=== PATIENT | male | born 1945 | race American Indian/Alaskan Native ===

== ENCOUNTER 2017-04-13 06:15 | Day surgery (SDC) | payer MEDICARE ==
[2017-04-07 11:19] VITALS: BMI 22.7
[2017-04-13] MEDS ORDERED: Propofol 10 mg/ml Inj (20 ML) ONE (07:59)
[2017-04-13] MEDS ORDERED: Lidocaine 1% Inj (20ml) ONE (07:59)
[2017-04-13] MEDS ORDERED: Sodium Chloride 0.9% 1,000 ML IV SCH (09:00)
[2017-04-13 09:04] VITALS: TEMP 97.9
[2017-04-13 09:36] VITALS: BP 169/75; PULSE 53; RESP 19; O2SAT 98
== END 2017-04-13 10:37 | disposition home or self-care (01) ==
LOC: ENDO 06:15
PROVIDERS: ATTEND Specialist
DX: Z12.11 Encounter for screening for malignant neoplasm of colon (principal); K57.30 Diverticulosis of large intestine without perforation or abscess without bleeding; K55.20 Angiodysplasia of colon without hemorrhage; K64.8 Other hemorrhoids; I10 Essential (primary) hypertension; I25.10 Atherosclerotic heart disease of native coronary artery without angina pectoris; E78.5 Hyperlipidemia, unspecified; D64.9 Anemia, unspecified; Z95.1 Presence of aortocoronary bypass graft
CPT/HCPCS: 45378; J2704; J7040

== ENCOUNTER 2018-02-20 06:11 | Day surgery (SDC) | payer MEDICARE ==
[2017-04-07 11:19] VITALS: BMI 22.7
[2018-02-20] MEDS ORDERED: Lidocaine 2 GM/50 ML Vial (4%) IV ONE ×2 (06:33→07:33)
[2018-02-20] MEDS ORDERED: Phenylephrine 10 mg/ml Inj ONE (06:34)
[2018-02-20] MEDS ORDERED: Nitroglycerin 50mg in D5W 50 MG/250 ML BOTTLE IV ONE (06:34)
[2018-02-20] MEDS ORDERED: Iodixanol 320 MG/ML 200 ML BOTTLE IV ONE (06:34)
[2018-02-20] MEDS ORDERED: Iodixanol 320 MG/ML 100 ML BOTTLE IV ONE (06:34)
[2018-02-20] MEDS ORDERED: Iohexol 350mgl/ml 50 ML ONE (06:34)
[2018-02-20] MEDS ORDERED: Lidocaine PF 2% (5 ml) Inj (For Cardiac Arrhy) IV ONE ×2 (06:35→07:35)
[2018-02-20 06:55] LABS: HEMOGLOBIN 12.9 g/dL (14.0-18.0); MEAN CELL VOLUME 91.6 fl (80.0-105.0); MEAN CORPUSCULAR HEMOGLOBIN 31.9 pg (25.0-35.0); MEAN CORPUSCULAR HGB CONC 34.8 g/dl (31.0-37.0); MEAN PLATELET VOLUME 8.7 fl (7.0-11.0); RBC 4.05 10^6/uL (3.5-6.1); RED CELL DISTRIBUTION WIDTH 13.9 % (11.5-14.5); WHITE BLOOD COUNT 5.8 10^3/ul (4.5-11.0)
[2018-02-20 07:05] LABS: INR 1.14 (0.93-1.08); PARTIAL THROMBOPLASTIN TIME 27.4 Seconds (25.1-36.5); PROTHROMBIN TIME 13.2 SECONDS (9.4-12.5)
[2018-02-20 07:06] LABS: BLOOD UREA NITROGEN 8 mg/dL (7-21); CALCIUM 9.1 mg/dL (8.4-10.5); GFR AFRICAN-AMERICAN > 60; GFR NON-AFRICAN AMERICAN > 60
--- NOTE | 2018-02-20 07:58 | CARD ---
APPROVED REPORT Date of service: 02/20/2018 EKG Measurement Heart [id number] AR 152P50 [id number] <Conclusion> Sinus bradycardia Right atrial enlargement Minimal voltage criteria for LVH, may be normal variant T wave abnormality, consider lateral ischemia Abnormal ECG
[2018-02-20] MEDS ORDERED: Midazolam 2 MG/2 ML VIAL ONE ×2 (08:08→08:23)
[2018-02-20] MEDS ORDERED: Sodium Chloride 0.9% 1,000 ML IV SCH (09:30)
--- NOTE | 2018-02-20 12:49 | CARDCATH ---
PROCEDURE DATE: 02/20/2018 CARDIAC CATHETERIZATION AND PTCA HISTORY: The patient is a 72-year-old male with a history of coronary artery bypass surgery, hypertension and hypercholesterolemia, who presents with an abnormal stress test. Because of this, cardiac catheterization was recommended. In addition, the patient suffers from peripheral vascular disease. PROCEDURE: Left heart catheterization with coronary arteriography, left ventriculogram, BAILEY angiogram, saphenous vein graft angiogram as well as PTCA and stent of an RCA and PTCA of the saphenous vein graft to the diagonal vessel of the LAD. The right femoral artery was cannulated with a 6-[place] sheath. There were no complications. I performed moderate sedation, which included the presence of an independent trained observer that assisted in monitoring the patient's level of consciousness and physiologic status. After administration of Versed and fentanyl, my intra service time was 30 minutes. The findings on catheterization revealed a left ventricle that contracted normally. Estimated ejection fraction of 60%. His coronary arteriography revealed a left main artery that was unremarkable. The circumflex artery in the AV groove branch revealed diffuse atherosclerosis without critical lesions. OM1 and the posterolateral branch were occluded. The LAD revealed diffuse atherosclerosis with a patent stent in the proximal portion. The diagonal vessel was occluded. The right coronary artery was selectively cannulized and found to be a dominant vessel. The RCA revealed diffuse atherosclerosis with a 90% stenosis in the midportion. The BAILEY to the LAD was found to be occluded. The saphenous vein graft to the diagonal vessel revealed a long 80-90% stenosis in the proximal portion. The saphenous vein graft to the circumflex 1 and posterolateral branch was a jump graft with a side-to-end anastomosis to the OM1 as well as an end-to-side anastomosis to the posterolateral branch. In the distal portion of the saphenous vein graft, there was an 80% stenosis noted. The patient was started on intravenous Angiomax on the fluoroscopic guide, the guiding catheter was placed in the ostium of the RCA. An 0.014 ATW wire was used to cross the RCA lesion. At 2 balloon was utilized to predilate the RCA lesion at 12 atmospheres of pressure. After balloon deflation and removal, a 2.5 x 12 mm drug-eluting stent was placed and deployed in the RCA lesion and deployed at 14 atmospheres of pressure. Repeat coronary arteriography revealed an excellent result with no residual stenosis and CYNTHIA III flow. The wire was then brought back and the guiding catheter was then placed in the ostium of the saphenous vein graft to the circumflex system. The same ATW wire was used to cross the critical lesion in the saphenous vein graft. A 3 x 12 mm drug-eluting stent was placed and deployed at 14 atmospheres of pressure in the saphenous vein graft to the circumflex system. Repeat coronary arteriography revealed an excellent result with no residual stenosis and CYNTHIA III flow. The patient tolerated the procedure well. Manual compression will be used to close the femoral artery site due to severe peripheral vascular disease. The patient tolerated the procedure well. In summary, the procedure was successful PTCA and stent of an RCA lesion as well as a PTCA and stent of saphenous vein graft system to the circumflex system. Both stents were drug-eluting stents. Cardiac catheterization revealed normal LV function. Triple-vessel CAD. An occluded BAILEY to the LAD. Lesions in the saphenous vein graft to the circumflex system, which was stented as well as critical lesions in the proximal portion of the saphenous vein graft to the diagonal vessel. New lesion in the RCA, which was stented. Given these findings, the patient will need to remain on aspirin indefinitely and Plavix for at least a year. We will bring the patient back in 1 week for PTCA and stent of the saphenous vein graft to the diagonal vessel. Tyrel Medeiros MD
--- NOTE | 2018-02-20 13:57 | HP ---
HISTORY OF PRESENT ILLNESS: The patient is a 72 year old man with a past medical history of CAD s/p CABG who presented for electively scheduled cardiac catheterization after undergoing an abnormal nuclear stress test. The patient was taken to the cardiac catheterization lab with Dr. Medeiros where he was found to have multivessel CAD. He underwent PCI with stent placement to the mid RCA lesion and tolerated the procedure well. He was subsequently transferred to the telemetry [facility]as[facility] for continued post cardiac catheterization care. PAST MEDICAL HISTORY: As per HPI, also HTN, BPH and GERD. PAST SURGICAL HISTORY: As per HPI. ALLERGIES: NKDA. MEDICATIONS: Nexium 20 mg p.o. daily, Aspirin 81 mg p.o. daily, Toprol XL 25 mg p.o. daily, Flomax 0.4 mg p.o. daily, Crestor 20 mg p.o. daily and Plavix 75 mg p.o. daily. FAMILY HISTORY: Significant for hypertension, hyperlipidemia and CAD. SOCIAL HISTORY: The patient reports social alcohol use and former smoking history. He denies illicit drug abuse. REVIEW OF SYSTEMS: A 12-point review of systems is negative except as per HPI. PHYSICAL EXAMINATION: VITAL SIGNS: Temperature 98.2, pulse 50, blood pressure 135/70, respiratory rate 18, oxygen saturation 99% on room air. GENERAL: No apparent distress. HEENT: PERRL, EOMI. No scleral icterus. No conjunctival pallor. NECK: No JVD. No bruits. LUNGS: Clear to auscultation. CARDIOVASCULAR: Regular rate and rhythm. Normal S1 and S2. ABDOMEN: Normoactive bowel sounds. Soft, nontender and nondistended. EXTREMITIES: No edema. NEUROLOGIC: Awake, alert and oriented x 3. LABORATORY DATA: CBC reviewed and unremarkable. CMP reviewed and unremarkable. ASSESSMENT: The patient is a 72 year old man with a past medical history of CAD s/p CABG who presented for electively scheduled cardiac catheterization after undergoing a nuclear stress test which was abnormal and is now s/p PCI with stent placement. PLAN: 1. CAD s/p CABG s/p PCI with GOOD stent placement. Continue with post catheterization care as per Dr. Medeiros. Continue Aspirin 81 mg p.o. daily, Plavix 75 mg p.o. daily and Lipitor 40 mg p.o. daily. 2. Hypertension. Blood pressure remains controlled off medications. We will continue to monitor hemodynamics and resume antihypertensives as needed. 3. BPH. Resume Flomax 0.4 mg p.o. daily. 4. GERD. We will start Pepcid 20 mg p.o. daily. 5. Prophylaxis. Continue Pepcid for GI prophylaxis. DVT prophylaxis is not indicated as the patient is ambulatory. CODE STATUS: Full code. Jose Elias Matthews MD MTDD
--- NOTE | 2018-02-20 19:27 | CARD ---
APPROVED REPORT Date of service: 02/20/2018 EKG Measurement Heart [id number] NC 152P51 [id number] <Conclusion> Marked sinus bradycardia with premature atrial complexes Minimal voltage criteria for LVH, may be normal variant T wave abnormality, consider anterolateral ischemia Abnormal ECG
[2018-02-20 23:50] VITALS: RESP 20
[2018-02-21 05:55] VITALS: BP 134/69; PULSE 78; TEMP 97.9; O2SAT 94
[2018-02-21 06:48] LABS: BASO # 0.02 K/mm3 (0.0-2.0); BASO % 0.4 % (0.0-3.0); EOS # 0.1 (0.0-0.7); EOS % 2.3 % (1.5-5.0); GRAN # 3.8 (1.4-6.5); GRAN % 67.9 % (50.0-68.0); HEMOGLOBIN 12.6 g/dL (14.0-18.0); LYMPH # 1.2 (1.2-3.4); LYMPH % 20.5 % (22.0-35.0); MEAN CELL VOLUME 91.8 fl (80.0-105.0); MEAN CORPUSCULAR HEMOGLOBIN 31.4 pg (25.0-35.0); MEAN CORPUSCULAR HGB CONC 34.2 g/dl (31.0-37.0); MEAN PLATELET VOLUME 8.8 fl (7.0-11.0); MONO # 0.5 (0.1-0.6); MONO % 8.9 % (1.0-6.0); RBC 4.01 10^6/uL (3.5-6.1); WHITE BLOOD COUNT 5.6 10^3/ul (4.5-11.0)
[2018-02-21 07:06] LABS: BLOOD UREA NITROGEN 7 mg/dL (7-21); CALCIUM 8.7 mg/dL (8.4-10.5); GFR AFRICAN-AMERICAN > 60; GFR NON-AFRICAN AMERICAN > 60
--- NOTE | 2018-02-21 08:24 | PN ---
DATE: 02/21/2018 CARDIOLOGY FOLLOWUP SUBJECTIVE: The patient is chest pain free. OBJECTIVE: VITAL SIGNS: Blood pressure is 134/69, heart rate is in the 70s. NECK: Negative JVD. LUNGS: Without rales. HEART: Reveal S1, S2. EXTREMITIES: Without edema. The right groin site is stable. DATA: Hemoglobin is 12.6. Chemistries: BUN and creatinine are unremarkable. IMPRESSION: 1. Stable post percutaneous transluminal coronary angioplasty and stent. 2. History of coronary artery bypass surgery. 3. Triple-vessel coronary artery disease. 4. Hypercholesterolemia. Given these findings, the patient is doing well. The patient is scheduled for discharge today. The patient will go home on aspirin and clopidogrel. The patient will return next week for PTCA and stent of bifurcating saphenous vein grafts. Tyrel Medeiros MD
--- NOTE | 2018-02-21 08:40 | PN ---
SUBJECTIVE: The patient was seen and examined at bedside on the telemetry vel[place]. No acute events overnight. He remains afebrile, hemodynamically stable and is doing well s/p his cardiac catheterization. This morning he feels well, offers no complaints and is looking forward to going home. OBJECTIVE: VITAL SIGNS: Temperature 97.9, pulse 78, blood pressure 134/69, respiratory rate 20, oxygen saturation 94% on room air. GENERAL: No apparent distress. HEENT: PERRL, EOMI. No scleral icterus. No conjunctival pallor. NECK: No JVD. No bruits. LUNGS: Clear to auscultation. CARDIOVASCULAR: Regular rate and rhythm. Normal S1 and S2. ABDOMEN: Normoactive bowel sounds. Soft, nontender and nondistended. EXTREMITIES: No edema. NEUROLOGIC: Awake, alert and oriented x 3. No focal motor deficits. LABORATORY DATA: CBC reviewed and unremarkable. BMP reviewed and unremarkable. ASSESSMENT: The patient is a 72 year old man with a past medical history of CAD s/p CABG who presented for electively scheduled cardiac catheterization after undergoing an abnormal nuclear stress test and is now s/p PCI with stent placement. PLAN: 1. CAD s/p CABG s/p PCI with GOOD stent placement. Continue Aspirin 81 mg p.o. daily, Plavix 75 mg p.o. daily and Lipitor 40 mg p.o. daily. 2. Hypertension. Resume Toprol-XL 25 mg p.o. daily. 3. BPH. Continue Flomax 0.4 mg p.o. daily. 4. GERD. Continue Pepcid 20 mg p.o. daily. 5. Prophylaxis. Continue Pepcid for GI prophylaxis. DVT prophylaxis is not indicated as the patient is ambulatory. CODE STATUS: Full code. Jose Elias Matthews MD DARIA
--- NOTE | 2018-02-21 19:39 | DS ---
ADMITTING DIAGNOSIS: Unstable angina. DISCHARGE DIAGNOSIS: CAD s/p PCI with GOOD stent placement x 2. SECONDARY DIAGNOSES: CAD s/p CABG s/p PCI with stent placement, HTN, BPH and GERD. CONSULTATION: Dr. Medeiros (Cardiology). IMAGING STUDIES: None. PROCEDURE: Cardiac catheterization which demonstrated multivessel CAD with placement of GOOD to the mid RCA and circumflex lesions. HISTORY OF PRESENT ILLNESS: The patient is a 72 year old man with a past medical history of CAD s/p CABG, hypertension, BPH and GERD who presented for electively scheduled cardiac catheterization after undergoing an abnormal nuclear stress test. The patient was taken to the cardiac catheterization lab by Dr. Medeiros where he was found to have multivessel CAD and underwent successful PCI with drug-eluting stent placement to the mid RCA and circumflex lesions. The patient tolerated the procedure well and no post procedure complications were noted and he was subsequently transferred to the telemetry [facility]as[facility] for continued post cardiac catheterization care. HOSPITAL COURSE: While in the telemetry velas[place] the patient was maintained on his home medications. His hospital stay was unremarkable and the following day he was noted to ambulate around the telemetry velasco with no cardiopulmonary symptoms. After evaluation with Dr. Medeiros he was cleared for discharge to home. CONDITION: Good, improved. DISPOSITION: Home. DISCHARGE MEDICATIONS: Aspirin 81 mg p.o. daily, Plavix 75 mg p.o. daily, Crestor 20 mg p.o. daily, Toprol XL 25 mg p.o. daily, Flomax 0.4 mg p.o. daily and Pepcid 20 mg p.o. daily. DISCHARGE INSTRUCTIONS: The patient was advised to adhere to post cardiac catheterization instructions as per Dr. Medeiros. He was also advised that if he develops any chest pain, palpitations, fevers, chills, rigors, pain or bleeding at his cardiac catheterization site to present to his PMD or to the nearest ED immediately. FOLLOWUP: The patient is to follow up with his PMD within 1 week of discharge. The patient is to follow up with Dr. Medeiros as scheduled. Jose Elias Matthews MD DARIA
== END 2018-02-21 09:02 | disposition home or self-care (01) ==
LOC: CATH 06:11 → 2RSO 09:39 → CATH 02-21 09:02
PROVIDERS: ATTEND Internal Medicine Cardiovascular Disease
DX: I25.110 Atherosclerotic heart disease of native coronary artery with unstable angina pectoris (principal); E78.00 Pure hypercholesterolemia, unspecified; I10 Essential (primary) hypertension; K21.9 Gastro-esophageal reflux disease without esophagitis; N40.0 Benign prostatic hyperplasia without lower urinary tract symptoms; I73.9 Peripheral vascular disease, unspecified; R94.39 Abnormal result of other cardiovascular function study; Z79.02 Long term (current) use of antithrombotics/antiplatelets; Z79.82 Long term (current) use of aspirin; Z79.899 Other long term (current) drug therapy; Z87.891 Personal history of nicotine dependence; Z95.1 Presence of aortocoronary bypass graft; Z82.49 Family history of ischemic heart disease and other diseases of the circulatory system
CPT/HCPCS: 36415 ×2; 80048 ×2; 85025; 85027; 85610; 85730; 86850; 86900; 93005; 93459; 99152; 99153; C1725; C1769 ×2; C1874 ×2; C1887; C2629; C9600; C9601; J0360; J0583; J1644; J2250; J3010; J7030; Q9966; Q9967

== ENCOUNTER 2018-03-02 06:21 | Day surgery (SDC) | payer MEDICARE ==
[2017-04-07 11:19] VITALS: BMI 22.7
[2018-03-02 07:15] LABS: BASO # 0.03 K/mm3 (0.0-2.0); BASO % 0.5 % (0.0-3.0); EOS # 0.1 (0.0-0.7); EOS % 2.4 % (1.5-5.0); GRAN # 4.16 (1.4-6.5); HEMOGLOBIN 13.5 g/dL (14.0-18.0); LYMPH # 1.1 (1.2-3.4); MEAN CELL VOLUME 91.9 fl (80.0-105.0); MEAN CORPUSCULAR HEMOGLOBIN 32.1 pg (25.0-35.0); MEAN CORPUSCULAR HGB CONC 34.9 g/dl (31.0-37.0); MEAN PLATELET VOLUME 8.6 fl (7.0-11.0); MONO # 0.5 (0.1-0.6); MONO % 8.1 % (1.0-6.0); RBC 4.21 10^6/uL (3.5-6.1); WHITE BLOOD COUNT 5.9 10^3/ul (4.5-11.0)
[2018-03-02 07:23] LABS: INR 1.15; PROTHROMBIN TIME 13.3 SECONDS (9.4-12.5)
[2018-03-02 07:25] LABS: PARTIAL THROMBOPLASTIN TIME 26.7 Seconds (25.1-36.5)
[2018-03-02 07:30] LABS: ALB/GLOB RATIO 1.1 (1.1-1.8); ALBUMIN 4.4 g/dL (3.0-4.8); ALT/SGPT 31 U/L (7-56); AST/SGOT 38 U/L (17-59); BLOOD UREA NITROGEN 10 mg/dL (7-21); CALCIUM 9.3 mg/dL (8.4-10.5); GFR AFRICAN-AMERICAN > 60; GFR NON-AFRICAN AMERICAN > 60
[2018-03-02] MEDS ORDERED: Iodixanol 320 MG/ML 200 ML BOTTLE IV ONE (08:11)
[2018-03-02] MEDS ORDERED: Lidocaine PF 2% (5 ml) Inj (For Cardiac Arrhy) ONE (08:11)
[2018-03-02] MEDS ORDERED: Midazolam 2 MG/2 ML VIAL ONE ×2 (08:45→08:58)
[2018-03-02] MEDS ORDERED: Verapamil 2 ML ONE (09:18)
--- NOTE | 2018-03-02 09:34 | CARD ---
APPROVED REPORT Date of service: 03/02/2018 EKG Measurement Heart [id number] ID [id number] <Conclusion> Sinus bradycardia Minimal voltage criteria for LVH, may be normal variant T wave abnormality, consider anterolateral ischemia Abnormal ECG
[2018-03-02] MEDS ORDERED: Sodium Chloride 0.9% 1,000 ML IV SCH (09:45)
--- NOTE | 2018-03-02 12:42 | CARD ---
APPROVED REPORT Date of service: 03/02/2018 EKG Measurement Heart [id number] MO 156P61 [id number] <Conclusion> Sinus bradycardia T wave abnormality, consider anterior ischemia Abnormal ECG
--- NOTE | 2018-03-02 13:04 | CARDCATH ---
Copied To: Tyrel Medeiros MD Attending MD: Tyrel Medeiros MD PROCEDURE DATE: 03/02/2018 CARDIAC CATH AND PTCA HISTORY: The patient is a 72-year-old male with multiple cardiac risk factors including coronary artery bypass surgery, who presented with chest pain and abnormal stress test. He was found to have multiple critical lesions on his catheterization last week. He is status post PTCA and stent of an RCA lesion as well as PTCA and stent of a saphenous vein graft to the OM system performed last week. He presents for PTCA and stent of a 90% long critical lesion of the saphenous vein graft to a diagonal vessel of the LAD. The left femoral artery was cannulated with a 6-Polish sheath. There were no complications. I performed moderate sedation, which included the presence of an independent trained observer that assisted in monitoring the patient's level of consciousness and physiologic status. After administration of Versed and fentanyl, my intra service time was 30 minutes. The findings on catheterization revealed a right dominant circulation. The RCA revealed a patent stent that was placed last week. The results were excellent. The saphenous vein graft to the circumflex system revealed a patent stent in the midportion of the saphenous vein graft. The saphenous vein graft to the diagonal vessel revealed a long 90% stenosis in its proximal portion. The patient was started on intravenous Angiomax on the fluoroscopic guide, the guiding catheter was placed in the ostium of the saphenous vein graft to the diagonal vessel of the LAD. An 0.014 ATW wire was used to cross the lesion. A 2 balloon was utilized to predilate the lesion. This was followed by deployment of a 2.5 x 23 mm drug-eluting stent. Immediately after deployment, there was a slow-flow phenomenon, which was relieved with intracoronary nitroglycerin 200 mcg. Postdilatation was performed with a 3 balloon. Repeat coronary arteriography revealed an excellent result with CYNTHIA III flow down the saphenous vein graft to the diagonal vessel. The patient tolerated the procedure well. Angio-Seal was used to close the femoral artery site. In summary, the procedure was successful PTCA and stent of a 90% stenoses of the saphenous vein graft to the diagonal vessel of the LAD. Cardiac catheterization reveals a patent stent in the right dominant circulation that was placed last week. The saphenous vein graft to the circumflex system was patent with a stent that was placed 1 week ago. Given these findings, the patient will need to remain on aspirin indefinitely and Plavix for at least a year and undergo a cardiac risk reduction program. Tyrel Medeiros MD
--- NOTE | 2018-03-02 13:45 | HP ---
HISTORY OF PRESENT ILLNESS: The patient is a 72 year old man with a past medical history of CAD s/p CABG who presented for electively scheduled staged cardiac catheterization after undergoing an abnormal nuclear stress test. The patient was taken to the cardiac catheterization lab [address] Medeiros where he underwent successful PCI with stent placement to the mid RCA lesion and circumflex lesion. The patient was advised at that time that he will need to return for staged PCI. He was taken to the cardiac catheterization lab with Dr. Medeiros today where he underwent PCI with stent placement of SVG to diagonal vessel and was subsequently transferred to the telemetry [facility] for continued post cardiac catheterization care. PAST MEDICAL HISTORY: As per HPI, also HTN, BPH and GERD. PAST SURGICAL HISTORY: As per HPI. ALLERGIES: NKDA. MEDICATIONS: Nexium 20 mg p.o. daily, Aspirin 81 mg p.o. daily, Toprol-XL 25 mg p.o. daily, Flomax 0.4 mg p.o. daily, Crestor 20 mg p.o. daily and Plavix 75 mg p.o. daily. FAMILY HISTORY: Significant for hypertension, hyperlipidemia and CAD. SOCIAL HISTORY: The patient reports social alcohol use and former smoking history. He denies illicit drug abuse. REVIEW OF SYSTEMS: A 12-point review of systems is negative except as per HPI. PHYSICAL EXAMINATION: VITAL SIGNS: Temperature 97.7, pulse 52, blood pressure 128/80, respiratory rate 18, oxygen saturation 99% on room air. GENERAL: No apparent distress. HEENT: PERRL, EOMI. No scleral icterus. No conjunctival pallor. NECK: No JVD. No bruits. LUNGS: Clear to auscultation. CARDIOVASCULAR: Regular rate and rhythm. Normal S1 and S2. ABDOMEN: Normoactive bowel sounds. Soft, nontender and nondistended. EXTREMITIES: No edema. NEUROLOGIC: Awake, alert and oriented x 3. No focal motor deficits. LABORATORY DATA: CBC reviewed and unremarkable. CMP reviewed and unremarkable. ASSESSMENT: The patient is a 72 year old man with past medical history of CAD s/p CABG s/p PCI with stent placement who presented for electively scheduled staged cardiac catheterization after undergoing an abnormal nuclear stress test. PLAN: 1. CAD s/p CABG s/p PCI with stent placement. Continue post cardiac catheterization care as per Dr. Medeiros. Resume aspirin 81 mg p.o. daily, Plavix 75 mg p.o. daily and Lipitor 40 mg p.o. daily. 2. Hypertension. Blood pressure controlled. Continue Toprol-XL 25 mg p.o. daily. 3. BPH. The patient to resume Flomax 0.4 mg p.o. daily upon discharge. 4. GERD. 5. Prophylaxis. GI prophylaxis is not indicated as the patient is eating. DVT prophylaxis is not indicated as the patient is ambulatory. CODE STATUS: Full code. Jose Elias Matthews MD MTDD
[2018-03-03 00:20] VITALS: RESP 20
[2018-03-03 06:15] VITALS: BP 123/78; TEMP 98.2; O2SAT 97
[2018-03-03 06:27] LABS: BASO # 0.02 K/mm3 (0.0-2.0); BASO % 0.3 % (0.0-3.0); EOS # 0.1 (0.0-0.7); EOS % 2.2 % (1.5-5.0); GRAN # 3.94 (1.4-6.5); GRAN % 67.2 % (50.0-68.0); HEMOGLOBIN 12.2 g/dL (14.0-18.0); LYMPH # 1.1 (1.2-3.4); LYMPH % 18.9 % (22.0-35.0); MEAN CELL VOLUME 91.4 fl (80.0-105.0); MEAN CORPUSCULAR HEMOGLOBIN 31.9 pg (25.0-35.0); MEAN CORPUSCULAR HGB CONC 34.9 g/dl (31.0-37.0); MEAN PLATELET VOLUME 8.7 fl (7.0-11.0); MONO # 0.7 (0.1-0.6); MONO % 11.4 % (1.0-6.0); RBC 3.83 10^6/uL (3.5-6.1); RED CELL DISTRIBUTION WIDTH 13.8 % (11.5-14.5); WHITE BLOOD COUNT 5.9 10^3/ul (4.5-11.0)
[2018-03-03 06:50] LABS: BLOOD UREA NITROGEN 9 mg/dL (7-21); CALCIUM 8.7 mg/dL (8.4-10.5); GFR AFRICAN-AMERICAN > 60; GFR NON-AFRICAN AMERICAN > 60
--- NOTE | 2018-03-03 10:42 | CARD ---
APPROVED REPORT Date of service: 03/03/2018 EKG Measurement Heart [id number] MT 150P51 [id number] <Conclusion> Sinus bradycardia with premature atrial complexes ST & Marked T wave abnormality, consider anterolateral ischemia Abnormal ECG
--- NOTE | 2018-03-03 11:20 | PN ---
Copied To: Tyrel Medeiros MD Attending MD: Tyrel Medeiros MD DATE: 03/03/2018 CARDIOLOGY FOLLOWUP SUBJECTIVE: The patient is chest pain free. No shortness of breath. PHYSICAL EXAMINATION: VITAL SIGNS: Blood pressure is 123/78, heart rate is in the 60s. NECK: Negative JVD. LUNGS: Without rales. HEART: Reveals S1, S2. EXTREMITIES: Without edema. Laboratories were reviewed and found to be unremarkable. IMPRESSION: 1. Stable post percutaneous transluminal coronary angioplasty and stent of the saphenous vein graft to the diagonal vessel of the left anterior descending. 2. Multivessel percutaneous transluminal coronary angioplasty. 3. History of coronary artery bypass surgery. 4. Hypercholesterolemia. 5. Hypertension. PLAN: Given these findings, the patient is stable for discharge. Followup and instructions have been given to the patient in detail. Tyrel Medeiros MD
[2018-03-03 11:49] VITALS: PULSE 60
--- NOTE | 2018-03-04 03:32 | DS ---
Copied To: Irwin Matthews MD Attending MD: Irwin Matthews MD HISTORY OF PRESENT ILLNESS: Patient is a 72-year-old white male who came and was admitted to the hospital for a cardiac cath secondary to a positive stress test. The patient had a cardiac cath by Dr. Tyrel Medeiros which showed that he had coronary artery disease and a stent of the saphenous vein graft to the diagonal vessel of the left anterior descending artery, multivessel percutaneous transluminal coronary angioplasty, history of coronary artery bypass surgery. The patient is lying comfortably in bed. He denies any symptoms at this time and there have been no acute events overnight. PHYSICAL EXAMINATION: VITAL SIGNS: A pulse rate of 57, blood pressure of 123/78, respiration rate of 20 with an O2 saturation of 97% on room air. HEENT: Negative. NECK: Supple. No bruits appreciated. LUNGS: Clear bilaterally. HEART: Shows a regular rate and rhythm. No murmurs. ABDOMEN: Benign. NEUROLOGIC: The patient is intact. LABORATORY DATA: CBC shows a hemoglobin of 12.2 with a hematocrit of 35. Chemistry is entirely unremarkable. IMPRESSION: At this time is coronary artery disease, hypertension, and benign prostatic hypertrophy. PLAN: The patient will be followed on an outpatient basis. Irwin Matthews MD
== END 2018-03-03 12:36 | disposition home or self-care (01) ==
LOC: CATH 06:21 → 2RSO 09:48 → CATH 03-03 12:36
PROVIDERS: ATTEND Internal Medicine Cardiovascular Disease
DX: I25.10 Atherosclerotic heart disease of native coronary artery without angina pectoris (principal); I10 Essential (primary) hypertension; N40.0 Benign prostatic hyperplasia without lower urinary tract symptoms; K21.9 Gastro-esophageal reflux disease without esophagitis; Z95.1 Presence of aortocoronary bypass graft; Z95.5 Presence of coronary angioplasty implant and graft; Z87.891 Personal history of nicotine dependence; Z82.49 Family history of ischemic heart disease and other diseases of the circulatory system
CPT/HCPCS: 36415 ×2; 80048; 80053; 85025 ×2; 85610; 85730; 86850; 86900; 93005 ×2; 99152; 99153; C1725 ×2; C1760; C1769 ×2; C1874; C1887; C9600; J0583; J1644; J2250; J3010; J7030; J7040; Q9966